=== PATIENT | female | born 2005 | race Caucasian/White ===

== ENCOUNTER 2025-05-20 09:12 | Emergency (ER) | payer OTHER ==
[2025-05-20] MEDS ORDERED: PROPRANOLOL HCL10 MG PO (09:22)
[2025-05-20] MEDS ORDERED: VENT7GM INH (09:22)
[2025-05-20] MEDS ORDERED: SODIUM CHLORIDE 0.9% 500 ML IV ONE (09:25)
[2025-05-20] MEDS ORDERED: Ondansetron Hydrochloride 4 MG TAB PO ONE (09:25)
[2025-05-20] MEDS ORDERED: ACETAMINOPHEN 325 MG TAB PO ONE (09:25)
[2025-05-20] MEDS ORDERED: Albuterol Sulf/Ipratropium 3 ML VIAL NEB ONE (09:30)
[2025-05-20 09:46] LABS: BASO # 0.0 10*3/uL (0.0-0.1); BASO % 0.3 % (0.0-1.0); EOS # 0.3 10*3/uL (0.0-0.4); EOS % 1.9 % (1.0-4.0); MEAN CELL VOLUME 90.8 fl (81.0-99.0); MEAN CORPUSCULAR HGB 30.1 pg (27.0-31.0); MEAN PLATELET VOLUME 10.8 fl (9.6-12.3); MONO # 0.8 10*3/uL (0.1-1.0); MONO % 5.1 % (3.0-9.0); NEUT # 11.6 10*3/uL (2.3-7.9); NEUT % 74.0 % (47.0-73.0); NUCLEATED RED BLOOD CELL 0.0 % (0.0-0.0); NUCLEATED RED BLOOD CELL 0.0 10*3/uL (0.0-0.0); PLATELET COUNT AUTOMATED 242 10*3/uL (130-400); RED CELL DISTRI WIDTH 13.1 % (0-14.5)
[2025-05-20 10:16] LABS: BUN 7 mg/dl (9-23)
[2025-05-20 10:18] LABS: BETA-HCG, QUANT < 3.0 mIU/mL (3-10)
[2025-05-20 10:22] LABS: BILIRUBIN Negative (Negative); BLOOD 3+ (Negative); CLARITY Cloudy (Clear); COLOR Dark Yellow (Yellow); KETONE Trace (Negative); LEUKO ESTERASE Trace (Negative); NITRITE Negative (Negative); SPECIFIC GRAVITY 1.020 (1.001-1.030); UROBILINOGEN 1.0 E.U./dl (0.0-1.0)
[2025-05-20 10:29] LABS: URINE AMPHETAMINES Negative (1000ng/ml); URINE BARBITURATES Negative (200ng/ml); URINE BENZODIAZEPINES Negative (200ng/ml); URINE CANNABINOIDS (THC) Negative (50ng/ml); URINE COCAINE Negative (300ng/ml); URINE METHADONE Negative (300ng/ml); URINE OPIATES Negative (300ng/ml); URINE PHENCYCLIDINE Negative (25ng/ml)
[2025-05-20 10:31] LABS: PH 8.5 (4.5-8.0)
[2025-05-20 10:42] LABS: BACTERIA 2+; MUCOUS 1+
[2025-05-20 10:43] LABS: RBC TNTC rbc/hpf (0-2)
== END 2025-05-20 12:15 | disposition home or self-care (01) ==
LOC: ED 09:12
PROVIDERS: Emergency Medicine
DX: N94.89 Other specified conditions associated with female genital organs and menstrual cycle (principal); F41.9 Anxiety disorder, unspecified; R10.2 Pelvic and perineal pain; Z79.899 Other long term (current) drug therapy; Z88.1 Allergy status to other antibiotic agents; Z88.2 Allergy status to sulfonamides